=== PATIENT | male | born 1955 | race Two or more races ===

== ENCOUNTER 2016-08-01 10:44 | Emergency (ER) | payer MEDICAID ==
[~2016-08-01 10:44] MED LIST: ASPIR 8181 M1 PO; ASPIR-LOW81 M1 PO; CENTRUM COMPLE1 EAC1 PO; DULCOLAX5 M1 PO; FISH OIL 1,2001 EAC7 PO; FLOMAX0.4 M1 PO; GLUCOSAMINE1000 M1 PO; LOVENOX40 MG/0.1 SC; MILK OF MAGNESIA PO; NICOTINE PATCH1 EAC1 TD; NORCO 5-325 TA1 EACH PO; NUCYNTA50 M1 PO; SENOKOT-S TABL1 EACH PO; VITAMIN B-1100 M3 PO; VITAMIN B12-FO1 EAC1 PO
[2016-08-01] MEDS ORDERED: LIPITOR20 M1 PO (12:33)
[2016-08-01] MEDS ORDERED: FLOMAX0.4 M1 PO (12:34)
[2016-08-01] MEDS ORDERED: VITAMIN D31000 UNI3 PO (12:35)
[2016-08-01 12:50] LABS: BASO % 0.5 % (0-2); BASO ABSOLUTE COUNT 0.1 tho/cmm (0.0-0.2); EOS % 3.5 % (0-7); EOSINOPHIL ABSOLUTE COUNT 0.4 tho/cmm (0.0-0.7); HCT-HEMATOCRIT 44.9 % (36.0-53.5); HGB-HEMOGLOBIN 15.5 gm/dl (13.5-17.0); IMMATURE GRANULOCYTES ABSOLUTE 0.02 tho/cmm (0-0.03); IMMATURE GRANULOCYTES PERCENT 0.2 % (0-0.3); LYMPH % 25.4 % (20-45); LYMPH ABSOLUTE COUNT 2.6 tho/cmm (0.8-4.5); MCH (MEAN CORPUSCULAR HGB) 29.6 pg (28.0-32.0); MCHC MEAN CORPUSCULAR HGB CONC 34.5 % (32.0-36.0); MCV (MEAN CELL VOLUME) 85.9 fl (82.0-96.0); MEAN PLATELET VOLUME 9.7 cmc (9.4-12.4); MONO % 6.5 % (0-12); MONOCYTE ABSOLUTE COUNT 0.7 tho/cmm (0.0-1.2); NEUTROPHIL ABSOLUTE COUNT 6.6 tho/cmm (1.6-8.0); NEUTROPHIL-AUTOMATED 6.6 tho/cmm (1.6-8.0); NEUTROPHILS % 63.9 % (40-80); PLATELET COUNT 266 tho/cmm (150-450); RED BLOOD COUNT 5.23 mil/cmm (4.40-5.70); WHITE BLOOD COUNT 10.3 tho/cmm (4.0-10.0)
[2016-08-01 13:22] LABS: ANION GAP 14 mmol/L (0-20); BLOOD UREA NITROGEN 10 mg/dl (6-24); CALCIUM 9.2 mg/dl (8.5-10.5); CARBON DIOXIDE-VENOUS 27 mmol/L (22-32); CHLORIDE 105 mmol/l (96-110); CREATININE 0.95 mg/dl (0.60-1.30); GLUCOSE 108 mg/dL (70-110); SODIUM 142 mmol/L (135-145); eGFR VALUE FOR BLACK >90 mL/Min
[2016-08-01 13:28] LABS: POTASSIUM 4.3 mmol/L (3.7-5.1)
[2016-08-01] MEDS ORDERED: PROCTOFOAM-HC 110 G1 PR (13:50)
== END 2016-08-01 14:13 ==
LOC: EDMED 10:44
PROVIDERS: Physician Assistant
DX: K62.5 Hemorrhage of anus and rectum (principal); E78.5 Hyperlipidemia, unspecified